=== PATIENT | male | born 1975 | race Caucasian/White ===

== ENCOUNTER 2016-11-28 04:04 | Emergency (ER) | payer OTHER ==
--- NOTE | ~2016-11-28 | CT4 ---
[facility] A Service [facility] RADIOLOGY TEXT RESULTS PATIENT: KENTON MUNOZ LOCATION: SED : 73 UNIT #: [id number] AGE: [address]: Leo Hendrix MD SEX: M ORDER DR: [id number] [place] [id number] E MR#: [id number] #: [id number] NAME: KENTON MUNOZ. : 1975 SEX: M STUDY DATE/TIME: 11/28/2016 5:08 UNIT: SED ROOM: STUDY DESCRIPTION: CT Abd and Pelv Wo Cont Attending Physician: Leo Hendrix M.D. Ordering Physician: Leo Hendrix M.D. Primary Care Physician: No Primary Care Physician MEDICAL IMAGING REPORT This report is preliminary unless electronic signature is present. EXAM CT abdomen and pelvis INDICATIONS Left upper quadrant abdominal pain. [address] of the abdomen and pelvis without contrast. Coronal and sagittal reconstructions were obtained. This CT exam was performed with one or more of the following radiation dose reduction techniques: automatic exposure control, adjustment of mA and/or kV according to patient size, and iterative reconstruction. COMPARISON None available. FINDINGS The 3-mm calculus in the distal left ureter results in a mild left hydronephrosis and left renal edema. There is a single 1-mm nonobstructing calculus in the mid to lower right kidney. There is a 2-mm nonobstructing calculus in the right kidney. Liver, gallbladder, pancreas, spleen, and adrenal glands are within normal limits. The bowel is not dilated. The appendix is normal. The abdominal aorta is normal in caliber. PELVIS: No pelvic mass. Bladder is unremarkable. No enlarged pelvic or inguinal lymph nodes. No acute osseous abnormalities. IMPRESSION 1. 3-mm calculus in the distal left ureter results in mild left [facility] A Service [facility] RADIOLOGY TEXT RESULTS PATIENT: KENTON MUNOZ LOCATION: SED : 73 UNIT #: [id number] AGE: [address]: Leo Hendrix MD SEX: M ORDER DR: hydronephrosis and mild left renal edema. 2. Nonobstructing right renal calculus. Dictated by... Ajit Anne M.D. THIS IS AN ELECTRONICALLY VERIFIED REPORT Ajit Anne M.D. at 11/28/2016 10:28 PM RYAN/elaina TD: 11/28/2016 13:47 JOB #: [id number] MEDICAL IMAGING REPORT Page 1 of 1
[~2016-11-28 04:04] MED LIST: FLEXERIL PO; KEFLEX PO; KETOPROFEN PO; MEDROL PO; NO MEDICATIONS; VOLTAREN75 MG PO
[2016-11-28 04:30] LABS: BASOPHIL# 0.1 X10e3 (0-0.3); BASOPHIL% 0.8 % (0-2.5); DIFF IND NO; EOSINOPHIL# 0.1 X10e3 (0-0.7); EOSINOPHIL% 1.3 % (0.0-7.0); HEMATOCRIT 46.9 % (38.0-50.0); HEMOGLOBIN 15.6 gm/dL (13.0-16.0); LYMPHOCYTE# 3.5 X10e3 (1.0-3.5); LYMPHOCYTE% 46.3 % (17.0-45.0); MEAN CELL VOLUME 88.2 FL (83-96); MEAN CORPUSCULAR HEMOGLOBIN 29.4 PG (28-34); MEAN CORPUSCULAR HGB CONC 33.3 g/dL (30-36); MEAN PLATELET VOLUME 8.2 FL (6.5-11.5); MONOCYTE# 0.6 X10e3 (0-1.0); MONOCYTE% 8.4 % (3.0-12.0); NEUTROPHIL# 3.3 X10e3 (1.5-7.1); NEUTROPHIL% 43.2 % (40-75); PLATELET COUNT 239 X10e3 (140-420); RED BLOOD COUNT 5.31 X10e (3.90-5.60); RED CELL DISTRIBUTION WIDTH 13.5 % (11.0-15.5); WHITE BLOOD COUNT 7.6 X10e3 (4.0-10.5)
[2016-11-28 04:46] LABS: ALBUMIN SERUM 4.5 g/dL (3.5-5.0); BILIRUBIN, DIRECT 0.1 mg/dL (0.0-0.2); BILIRUBIN,INDIRECT 0.7 mg/dL (0.0-0.9); BILIRUBIN,TOTAL 0.8 mg/dL (0.2-2.0); BUN/CREATININE RATIO 11.66; CALCIUM SERUM 9.6 mg/dL (8.4-10.2); CREATININE SERUM 1.2 mg/dL (0.6-1.4); GLOM FILT RATE Estimated 74.2 mL/min (>60); POTASSIUM 3.5 mmol/L (3.5-5.1)
== END 2016-11-28 07:25 | disposition home or self-care (01) ==
LOC: SED 04:04
PROVIDERS: Emergency Medicine
DX: N13.2 Hydronephrosis with renal and ureteral calculous obstruction (principal); F17.200 Nicotine dependence, unspecified, uncomplicated
CPT/HCPCS: 36415; 74176; 80048; 80076; 83690; 85025; 96361; 96374; 96375; 99284; J1170; J1885; J2405